=== PATIENT | male | born 1955 | race Caucasian/White ===

== ENCOUNTER 2018-04-12 09:03 | Day surgery (SDC) | payer OTHER, BC ==
[2018-04-11 13:48] VITALS: BMI 36.6
[2018-04-12 10:55] VITALS: TEMP 97.7
[2018-04-12 12:58] VITALS: BP 118/78; PULSE 77
== END 2018-04-12 11:50 | disposition home or self-care (01) ==
LOC: JASU-ENDO 09:03
PROVIDERS: ATTEND Internal Medicine Gastroenterology
PROC: 0DJD8ZZ Inspection of Lower Intestinal Tract, Via Natural or Artificial Opening Endoscopic (ICD-10-PCS; principal; 2018-04-12 09:45)
DX: Z12.11 Encounter for screening for malignant neoplasm of colon (principal); K57.30 Diverticulosis of large intestine without perforation or abscess without bleeding; K64.8 Other hemorrhoids